=== PATIENT | female | born 1980 | race Caucasian/White ===

== ENCOUNTER 2017-12-22 07:59 | Emergency (ER) | payer OTHER ==
[~2017-12-22] VITALS: Ht 162.6 cm; Wt 86.5 kg
[2017-12-22 08:01] VITALS: BP 143/87; PULSE 110; RESP 16; TEMP 98.6; O2SAT 100
[2017-12-22] MEDS ORDERED: SODIUM CHLORIDE 0.9% FLUSH 10 ML FLUSH IVF PRN (08:15)
[2017-12-22 08:40] LABS: AUTOMATED NEUTROPHIL # 5.8 TH/MM3 (1.8-7.7); BASOPHIL % 0.6 % (0.0-2.0); EOSINOPHIL # 0.3 TH/MM3 (0-0.4); EOSINOPHIL % 3.4 % (0.0-4.0); HEMATOCRIT 37.8 % (35.0-46.0); HEMOGLOBIN 12.8 GM/DL (11.6-15.3); LYMPH % 18.5 % (9.0-44.0); LYMPHOCYTE # 1.5 TH/MM3 (1.0-4.8); MEAN CORPUSCULAR HGB CONC 33.8 % (32.0-36.0); MEAN PLATELET VOLUME 8.4 FL (7.0-11.0); MONO % 7.6 % (0.0-8.0); MONOCYTE # 0.6 TH/MM3 (0-0.9); NEUT % 69.9 % (16.0-70.0); PLATELET COUNT 295 TH/MM3 (150-450); RED BLOOD COUNT 4.73 MIL/MM3 (4.00-5.30); RED CELL DISTRIBUTION WIDTH 13.2 % (11.6-17.2); WHITE BLOOD COUNT 8.4 TH/MM3 (4.0-11.0)
[2017-12-22 08:43] LABS: BILIRUBIN, URINE NEG (NEG); BLOOD, URINE NEG (NEG); GLUCOSE,URINE NEG (NEG); HYALINE CAST, URINE 1 /lpf (RARE); KETONE, URINE NEG (NEG); MUCUS URINE FEW /lpf (OCC); NITRITE,URINE NEG (NEG); PH, URINE 5.5 (5.0-8.5); SQUAMOUS EPITHELIAL CELL URINE 9 /hpf (0-5); URINE COLOR YELLOW (YELLW/STRAW); URINE LEUKOCYTE ESTERASE NEG (NEG)
[2017-12-22 08:59] LABS: CALCIUM 8.6 MG/DL (8.5-10.1); CREATININE 0.88 MG/DL (0.50-1.00)
[2017-12-22] MEDS ORDERED: KETOROLAC TROMETHAMINE 30 MG/ML (IVP) VIAL IV PUSH ONE (09:00)
--- NOTE | 2017-12-22 09:15 | RADRPT ---
EXAM DATE/TIME: 12/22/2017 09:04 [place] COMPARISON: No previous studies available for comparison. INDICATIONS : Left lower quadrant pain ORAL CONTRAST: No oral contrast ingested. RADIATION DOSE: 8.50 CTDIvol (mGy) MEDICAL HISTORY : None SURGICAL HISTORY : None. ENCOUNTER: Initial ACUITY: 1 day PAIN SCALE: 6/10 LOCATION: Left lower quadrant TECHNIQUE: Volumetric scanning of the abdomen and pelvis was performed. Using automated exposure control and ad justment of the mA and/or kV according to patient size, radiation dose was kept as low as reasonably achievable to obtain optimal diagnostic quality images. DICOM format image data is available electro nically for review and comparison. FINDINGS: LOWER LUNGS: The visualized lower lungs are clear. LIVER: Homogeneous density without lesion. There is no dilation of the biliary tree. No calcified gallston es. SPLEEN: Normal size without lesion. PANCREAS: Within normal limits. KIDNEYS: Normal in size and shape. There is no mass, stone, or hydronephrosis on the right. Mild hydronephros is and hydroureter on the left leading to a left UVJ calculus measuring 4 mm. ADRENAL GLANDS: Within normal limits. VASCULAR: There is no aortic aneurysm. BOWEL/MESENTERY: The stomach, small bowel, and colon demonstrate no acute abnormality. There is no free intraperitone al air or fluid. ABDOMINAL WALL: Within normal limits. RETROPERITONEUM: There is no lymphadenopathy. BLADDER: No wall thickening or mass. REPRODUCTIVE: IUD noted. INGUINAL: There is no lymphadenopathy or hernia. MUSCULOSKELETAL: Within normal limits for patient age. CONCLUSION: 1. Mild obstructive uropathy on the left secondary to left UVJ calculus measuring 4 mm. 2. IUD. Familia Johnson MD on December 22, 2017 at 9:09 Board Certified Radiologist. This report was verified electronically.
[2017-12-22 09:50] VITALS: BP 126/93; PULSE 88; RESP 24; O2SAT 100
[2017-12-22] MEDS ORDERED: PERC5TAB12 PO (10:34)
[2017-12-22] MEDS ORDERED: ZOFR4TAB3 SL (10:34)
--- NOTE | 2017-12-22 10:35 | PD ---
HPI Chief Complaint: Flank/Kidney Pain Time Seen by Provider: 08:13 Travel History International Travel<30 days: No Contact w/Intl Traveler<30days: No Traveled to known affect area: No History of Present Illness HPI 37-year-old female presents with left flank pain and nausea. She states she has history of kidney stone. She states she went to [facility] where she was originally diagnosed with it. She states she is no longer on pain medication. She denies any other concurrent complaints. Quality of pain is sharp. Severity is severe. She does not currently have a urologist. She states she does have insurance. She denies specific modifying factors. [facility] Past Medical History Narrative Medical kidney stone ?: Unknown LMP: IUD IN PLACE. Past Surgical History Surgical History: No Previous Surgery Social History Alcohol Use: No Tobacco Use: No Substance Use: No Allergies-Medications (Allergen,Severity, Reaction): Coded Allergies: codeine (Verified Allergy, Mild, 12/22/17) Review of Systems Except as stated in HPI: all other systems reviewed are Neg Physical Exam Narrative GENERAL: Well-nourished, well-developed patient. SKIN: Warm and dry. HEAD: Normocephalic and atraumatic. EYES: No injection or drainage. ENT: No nasal drainage noted. NECK: Supple, trachea midline. CARDIOVASCULAR: Regular rate and rhythm RESPIRATORY: Breath sounds equal bilaterally. No accessory muscle use. GASTROINTESTINAL: Abdomen soft, tender left mid lower abdomen, nondistended. EXTREMITIES: No edema. NEUROLOGICAL: Awake and alert. Motor and sensory grossly within normal limits. Normal speech. Data Data Last Documented VS Vital Signs Date Time Temp Pulse Resp B/P (MAP) Pulse Ox O2 Delivery O2 Flow Rate FiO2 12/22/17 08:01 98.6 110 16 143/87 (105) 100 Orders Orders Complete Blood Count With Diff (12/22/17 08:13) Basic Metabolic Panel (Bmp) (12/22/17 08:13) Urinalysis - C+S If Indicated (12/22/17 08:13) Ed Urine Pregnancytest Poc (12/22/17 08:13) Ct Abd/Pel W/O Iv Contrast (12/22/17 08:13) Ecg Monitoring (12/22/17 08:13) Iv Access Insert/Monitor (12/22/17 08:13) Sodium Chloride 0.9% Flush (Ns Flush) (12/22/17 08:15) Ketorolac Inj (Toradol Inj) (12/22/17 09:00) Labs Laboratory Tests Test 12/22/17 08:20 White Blood Count 8.4 TH/MM3 Red Blood Count 4.73 MIL/MM3 Hemoglobin 12.8 GM/DL Hematocrit 37.8 % Mean Corpuscular Volume 80.0 FL Mean Corpuscular Hemoglobin 27.0 PG Mean Corpuscular Hemoglobin Concent 33.8 % Red Cell Distribution Width 13.2 % Platelet Count 295 TH/MM3 Mean Platelet Volume 8.4 FL Neutrophils (%) (Auto) 69.9 % Lymphocytes (%) (Auto) 18.5 % Monocytes (%) (Auto) 7.6 % Eosinophils (%) (Auto) 3.4 % Basophils (%) (Auto) 0.6 % Neutrophils # (Auto) 5.8 TH/MM3 Lymphocytes # (Auto) 1.5 TH/MM3 Monocytes # (Auto) 0.6 TH/MM3 Eosinophils # (Auto) 0.3 TH/MM3 Basophils # (Auto) 0.0 TH/MM3 CBC Comment DIFF FINAL Differential Comment Urine Color YELLOW Urine Turbidity HAZY Urine pH 5.5 Urine Specific [place] 1.022 Urine Protein NEG mg/dL Urine Glucose (UA) NEG mg/dL Urine Ketones NEG mg/dL Urine Occult Blood NEG Urine Nitrite NEG Urine Bilirubin NEG Urine Urobilinogen LESS THAN 2.0 MG/DL Urine Leukocyte Esterase NEG Urine RBC 3 /hpf Urine WBC 1 /hpf Urine Squamous Epithelial Cells 9 /hpf Urine Hyaline Casts 1 /lpf Urine Mucus FEW /lpf Microscopic Urinalysis Comment CULT NOT INDICATED Blood Urea Nitrogen 10 MG/DL Creatinine 0.88 MG/DL Random Glucose 92 MG/DL Calcium Level 8.6 MG/DL Sodium Level 139 MEQ/L Potassium Level 4.1 MEQ/L Chloride Level 107 MEQ/L Carbon Dioxide Level 26.0 MEQ/L Anion Gap 6 MEQ/L Estimat Glomerular Filtration Rate 73 ML/MIN [facility] Medical Decision Making Medical Screen Exam Complete: Yes Emergency Medical Condition: Yes Medical Record Reviewed: Yes (past history confirmed) Interpretation(s) CBC & BMP Diagram 12/22/17 08:20 Calcium Level 8.6 Last 24 hours Impressions Abdomen/Pelvis CT 12/22/17 0813 Signed Impressions: Service Date/Time: December 09:04 - CONCLUSION: 1. Mild obstructive uropathy on the left secondary to left UVJ calculus measuring 4 mm. 2. IUD. Familia Johnson MD Differential Diagnosis Kidney stone, ectopic, UTI, musculoskeletal Narrative Course Will check blood work, urinalysis, CT scan abdominal pelvis and dose with Toradol and reevaluate Patient has 4 mm UVJ stone with hydronephrosis with normal creatinine and without infection. Vitals are stable. Patient denies any new complaints and states that they are feeling better. Patient happy with care, all questions answered. Patient knows that follow up is incumbent on them and to return to the emergency room immediately if new or worsening symptoms develop. Patient given strict return precautions, agrees to further workup as an outpatient. Patient feels comfortable calling her insurance to set up but is requesting to have the name of the physician on-call today which I will provide for her and she will confirm that they accept her insurance. patient states has had percocet in past without difficulty Diagnosis Primary Impression: Kidney stone Patient Instructions: General Instructions Additional Instructions: return as needed, follow with urology tuesday, percocet as needed for severe pain , zofran as needed for nausea Med/Other Pt SpecificInfo: Prescription(s) given Scripts Oxycodone-Acetaminophen (Percocet) 5-325 mg Tab 1 TAB PO Q6H Y for PAIN, #10 TAB 0 Refills Prov: Kendra Castillo MD 12/22/17 Ondansetron Odt (Zofran Odt) 4 Mg Tab 4 MG SL Q6HR Y for Nausea/Vomiting, #10 TAB 0 Refills Prov: Kendra Castillo MD 12/22/17 Disposition: 01 DISCHARGE HOME Condition: Stable Kendra Castillo MD Dec 22, 2017 10:35
[2017-12-22 10:45] VITALS: BP 135/78
== END 2017-12-22 10:57 | disposition home or self-care (01) ==
LOC: NEPE 07:59
DX: N20.2 Calculus of kidney with calculus of ureter (principal); R11.0 Nausea; Z87.442 Personal history of urinary calculi
CPT/HCPCS: 74176; 80048; 81001; 84703; 85025; 96374; 99284; J1885